=== PATIENT | female | born 1960 | race Caucasian/White ===

== ENCOUNTER 2021-12-27 13:53 | Outpatient (CLI) | payer BC, SELFPAY ==
--- NOTE | 2021-12-27 14:00 | CRLHL7_ITS ---
For Patients: As a result of the Cures Act, medical imaging exams and procedure reports are released immediately into your electronic medical record. You may view this report before your referring provider. If you have questions, please contact your health care provider. BILATERAL MAMMOGRAM WITH COMPUTER-AIDED DETECTION AND TOMOSYNTHESIS TECHNIQUE: CC and MLO views were obtained. These mammographic images have been obtained using full-field digital technique. These mammographic images were interpreted with the benefit of computer-aided detection. Breast Tomosynthesis was used in this interpretation. COMPARISON FILM: 09/08/2020, 12/02/2019, 11/16/2018. FINDINGS: The breasts are heterogeneously dense, which may obscure small masses IMPRESSION: There is no radiographic evidence for malignancy. ASSESSMENT: BI-RADS Category 2: Benign RECOMMENDATION: Routine screening mammogram in 1 year. A lay language report of this examination will be provided to the patient. Refugio Ansari M.D. Diagnostic Radiologist [email or web address] RICHARD/[email or web address] / be/Dictated by: Refugio Ansari MD @ 12/28/2021 2:15:00 PM (Electronically Signed)
== END 2021-12-27 13:54 | disposition home or self-care (01) ==
LOC: MAMMO 13:54
PROVIDERS: PCP Internal Medicine; Visit Provider Internal Medicine
DX: Z12.31 Encounter for screening mammogram for malignant neoplasm of breast (principal); R92.2 Inconclusive mammogram
CPT/HCPCS: 77063; 77067

== ENCOUNTER 2022-02-08 08:00 | Outpatient (CLI) | payer BC, SELFPAY ==
[2022-02-08 12:04] LABS: TSH With Reflex to FT4* 0.767 uIU/mL (0.270-4.200)
== END 2022-02-08 08:01 | disposition home or self-care (01) ==
LOC: NFLDREF 08:01
PROVIDERS: PCP Internal Medicine; Visit Provider Internal Medicine
DX: E03.9 Hypothyroidism, unspecified (principal)
CPT/HCPCS: 84443

== ENCOUNTER 2022-10-20 11:26 | Emergency (ER) | payer BC, SELFPAY ==
[2022-10-20 11:29] VITALS: BP 194/83; PULSE 89; RESP 20; TEMP 36.5; O2SAT 96; BMI 33.5
--- NOTE | 2022-10-20 12:12 | ED_ITS ---
HPI - General Adult General Chief complaint: Shortness of Breath/Dyspnea Stated complaint: Cough, trouble breathing Time Seen by Provider: 10/20/22 11:30 History of Present Illness HPI narrative: Patient is a 62 white female who attended her grandkids who been sick with viral type illnesses. She has no chronic respiratory problems but has had a cough and felt little short of breath with exertion over the last couple of days but mostly it is just cough most or shortness of breath happens when she coughs heavily. She has had good O2 sat here no fever. She has tested for COVID at home and it has been negative. She has no heart disease or lung disease. Related Data Previous Rx's Medication Instructions Recorded levothyroxine 175 mcg tablet 175 mcg PO .1XW #27 tabs 07/23/22 doxycycline hyclate 100 mg capsule 100 mg PO BID 7 days #14 caps 10/20/22 prednisone 20 mg tablet 20 mg PO BID #10 tabs 10/20/22 Allergies Allergy/AdvReac Type Severity Reaction Status Date / Time No Known Allergies Allergy Unverified 01/18/22 11:10 Review of Systems Status of ROS: Reports: 6 or more systems reviewed and unremarkable except as noted in History and below PFSH [facility] Medical History History of malignant neoplasm of breast ?Z85.3 - Personal history of malignant neoplasm of breast (ICD-10) Surgical History History of right salpingo-oophorectomy ?Z90.79 - Acquired absence of other genital organ(s) (ICD-10) ?Z90.721 - Acquired absence of ovaries, unilateral (ICD-10) History of hysteroscopy ?Z98.890 - Other specified postprocedural states (ICD-10) Social History Smoking Status: Unknown if ever smoked Exam Narrative: Exam Narrative: Objective: O2 sat is excellent vital signs show slightly elevated blood pressure HEENT is unremarkable Chest is clear other than some wheezes at the bases that clear with deep breathing Heart rhythm regular heart murmur Good peripheral perfusion noted Const: Vital Signs, click to edit/add: Vital Signs - 24 hr 10/20/22 11:29 10/20/22 12:30 Temperature 97.7 F Pulse Rate [Pulse Oximeter] 89 92 Respiratory Rate 20 Blood Pressure [Ri ght Upper Arm] 194/83 H 187/103 H Pulse Oximetry 96 95 Oxygen Delivery Me thod Room Air Room Air Course Vital Signs Vital signs: Initial Vital Signs Temperature 97.7 F 10/20/22 11:29 Temperature Source Temporal Artery Scan 10/20/22 11:29 Pulse Rate 89 10/20/22 11:29 Respiratory Rate 20 10/20/22 11:29 Blood Pressure 194/83 H 10/20/22 11:29 Blood Pressure Mean 120 H 10/20/22 11:29 Blood Pressure Position Sitting 10/20/22 11:29 Pulse Oximetry 96 10/20/22 11:29 Oxygen Delivery Method Room Air 10/20/22 11:29 Vital Signs Temperature 97.7 F 10/20/22 11:29 Pulse Rate 89 10/20/22 11:29 Respiratory Rate 20 10/20/22 11:29 Blood Pressure 194/83 H 10/20/22 11:29 Pulse Oximetry 96 10/20/22 11:29 Oxygen Delivery Method Room Air 10/20/22 11:29 Temperature 97.7 F 10/20/22 11:29 Pulse Rate 92 10/20/22 12:30 Respiratory Rate 20 10/20/22 11:29 Blood Pressure 187/103 H 10/20/22 12:30 Pulse Oximetry 95 10/20/22 12:30 Oxygen Delivery Method Room Air 10/20/22 12:30 Medical Decision Making MDM Narrative Medical decision making narrative: [age] female with a bronchitis type presentation with mild bronchospasm. At this point I think she has been exposed to viral illness, would check a COVID/RSV/influenza test. Will give her prednisone 50 mg now and then 20 b.i.d. x5 days, would also use doxycycline 100 mg b.i.d. x7 days rest fluids observation recheck with primary care as needed if not better in the next 2-3 days, return to ED sooner problems concerns worsening thanks Lab Data Labs: Lab Results 10/20/22 Range/Units 12:20 SARS-CoV-2 (PCR) Negative SARS-CoV-2 (Negative) Influenza Type A (PCR) Negative PCR FLU A (Negative) Influenza Type B (PCR) Negative PCR FLU B (Negative) RSV (PCR) Negative PCR RSV (Negative) Discharge Plan Discharge Clinical Impression: Acute bronchospasm, Bronchitis Patient Disposition: Home, Self-Care Condition: Stable Additional Instructions: Rest, fluids, light activity, Tylenol or Advil as needed, prednisone 20 mg b.i.d. starting tomorrow x3 days, doxycycline 100 mg b.i.d. x7 days. Return if problems or concerns or difficulty. Oxygen level looks good today. Activity Level: No Restrictions and Light activity Discharge Diet: Regular Prescriptions: New prednisone 20 mg tablet 20 mg PO BID Qty: 10 0RF doxycycline hyclate 100 mg capsule 100 mg PO BID 7 Days Qty: 14 0RF No Action levothyroxine 175 mcg tablet 175 mcg PO .1XW Qty: 27 1RF Rx Instructions: Take 150 mcg 4 times a week, 175mcg 3 day a week Follow Up/Referrals: Romi Quinn MD [Primary Care Provider] - Stand Alone Forms: [facility] Info Instructions
[2022-10-20] MEDS: predniSONE 10 MG TABLET 50 MG PO (12:21)
[2022-10-20] MEDS: DOXYCYCLINE HYCLATE 100 MG CAPSULE PO (12:21)
[2022-10-20 12:30] VITALS: BP 187/103; PULSE 92; O2SAT 95
[2022-10-20 13:20] LABS: PCR FLU A Negative PCR FLU A (Negative); PCR FLU B Negative PCR FLU B (Negative); PCR RSV Negative PCR RSV (Negative)
[2022-10-20 14:46] LABS: SARS PCR* Negative SARS-CoV-2 (Negative)
== END 2022-10-20 12:33 | disposition home or self-care (01) ==
PROVIDERS: Emergency Provider Family Medicine; PCP Internal Medicine
DX: J20.9 Acute bronchitis, unspecified (principal)
CPT/HCPCS: 87631; 99283; A9270; J7512

== ENCOUNTER 2022-12-31 07:53 | Outpatient (CLI) | payer BC, SELFPAY | END 2022-12-31 07:54 | disposition home or self-care (01) | LOC: NFLDREF 01-01 10:21 | PROVIDERS: PCP Internal Medicine; Referring Provider Internal Medicine; Visit Provider Internal Medicine | DX: E03.9 Hypothyroidism, unspecified (principal) | CPT/HCPCS: 84439; 84443 ==

== ENCOUNTER 2023-01-07 14:54 | Outpatient (CLI) | payer BC, SELFPAY ==
--- NOTE | 2023-01-07 15:00 | CRLHL7_ITS ---
For Patients: As a result of the Cures Act, medical imaging exams and procedure reports are released immediately into your electronic medical record. You may view this report before your referring provider. If you have questions, please contact your health care provider. BILATERAL SCREENING MAMMOGRAM WITH COMPUTER-AIDED DETECTION AND TOMOSYNTHESIS TECHNIQUE: CC and MLO views were obtained. These mammographic images have been obtained using full-field digital technique. These mammographic images were interpreted with the benefit of computer-aided detection. Breast Tomosynthesis was used in this interpretation. COMPARISON FILM: 12/27/21, 12/06/20, 12/02/19. FINDINGS: There are scattered areas of fibroglandular density IMPRESSION: There is no radiographic evidence for malignancy. ASSESSMENT: BI-RADS Category 2: Benign RECOMMENDATION: Routine screening mammogram in 1 year. A lay language report of this examination will be provided to the patient. Refugio Ansari M.D. Diagnostic Radiologist [email or web address] RICHARD/[email or web address] Transcribed: 2:54 p.mKirk grossman/Dictated by: Refugio Ansari MD @ 01/08/2023 11:59:00 AM (Electronically Signed)
== END 2023-01-07 14:55 | disposition home or self-care (01) ==
LOC: MAMMO 14:55
PROVIDERS: PCP Internal Medicine; Visit Provider Internal Medicine
DX: Z12.31 Encounter for screening mammogram for malignant neoplasm of breast (principal)
CPT/HCPCS: 77063; 77067

== ENCOUNTER 2023-04-11 10:01 | Outpatient (CLI) | payer BC, SELFPAY | END 2023-04-11 10:02 | disposition home or self-care (01) | LOC: NFLDREF 04-12 02:59 | PROVIDERS: PCP Internal Medicine; Referring Provider Internal Medicine; Visit Provider Internal Medicine | DX: E03.9 Hypothyroidism, unspecified (principal) | CPT/HCPCS: 84439; 84443 ==

== ENCOUNTER 2023-06-26 10:20 | Outpatient (CLI) | payer BC, SELFPAY | END 2023-06-26 10:21 | disposition home or self-care (01) | LOC: NFLDREF 06-27 07:27 | PROVIDERS: PCP Internal Medicine; Referring Provider Internal Medicine; Visit Provider Internal Medicine | DX: E03.9 Hypothyroidism, unspecified (principal) | CPT/HCPCS: 84443 ==

== ENCOUNTER 2024-02-24 08:16 | Outpatient (CLI) | payer BC, SELFPAY ==
--- NOTE | 2024-02-24 08:15 | CRLHL7_ITS ---
For Patients: As a result of the Century Cures Act, medical imaging exams and procedure reports are released immediately into your electronic medical record. You may view this report before your referring provider. If you have questions, please contact your health care provider. BILATERAL DIGITAL SCREENING MAMMOGRAM WITH COMPUTER-AIDED DETECTION AND TOMOSYNTHESIS CLINICAL HISTORY: Routine screening exam. COMPARISON: 01/07/2023, 12/27/2021, 12/06/2020. TECHNIQUE: Digital mammogram in CC and MLO projections including computer-aided detection (CAD). Tomosynthesis was used in this interpretation. BREAST COMPOSITION: There are scattered areas of fibroglandular density. FINDINGS: RIGHT Breast: Focal asymmetric density lateral breast 7 cm from the nipple. LEFT Breast: No suspicious findings. IMPRESSION: RIGHT breast asymmetry/mass. RECOMMENDATIONS: Additional mammographic views of the RIGHT breast including 3D spot compression CC/MLO. RIGHT breast ultrasound may also be required. [facility] will contact the patient for follow-up. BI-RADS Category 0: Incomplete: Need Additional Imaging Evaluation and/or Prior Mammograms for Comparison A lay language report of this examination will be provided to the patient. Dictated by Refugio Ansari MD @ 02/24/2024 11:15:43 AM /[email or web address]/[email or web address] SP/Dictated by: Refugio Ansari MD @ 02/24/2024 11:16:00 AM (Electronically Signed)
== END 2024-02-24 08:17 | disposition home or self-care (01) ==
PROVIDERS: PCP Internal Medicine; Visit Provider Internal Medicine
DX: Z12.31 Encounter for screening mammogram for malignant neoplasm of breast (principal); N63.10 Unspecified lump in the right breast, unspecified quadrant
CPT/HCPCS: 77063; 77067

== ENCOUNTER 2024-03-04 09:34 | Outpatient (CLI) | payer BC, SELFPAY ==
--- NOTE | 2024-03-04 09:45 | CRLHL7_ITS ---
For Patients: As a result of the Cures Act, medical imaging exams and procedure reports are released immediately into your electronic medical record. You may view this report before your referring provider. If you have questions, please contact your health care provider. RIGHT DIAGNOSTIC DIGITAL MAMMOGRAM WITH COMPUTER-AIDED DETECTION AND TOMOSYNTHESIS RIGHT BREAST ULTRASOUND CLINICAL HISTORY: RIGHT breast mass/asymmetry. COMPARISON: 02/24/24, 01/07/23, 12/27/21. TECHNIQUE: Digital RIGHT mammogram in two projections with computer-aided detection. Tomosynthesis was used in this interpretation. Real-time ultrasound imaging of RIGHT breast with imaging documentation. Scanning was performed by both the technologist and the radiologist. BREAST COMPOSITION: There are scattered areas of fibroglandular density. FINDINGS: 3D spot compression CC/MLO RIGHT breast mammogram images are submitted. Decreased conspicuity of the asymmetric density. No architectural distortion. Benign calcifications. Targeted RIGHT breast ultrasound performed at 9 o`clock, 7 cm from the nipple. Normal fibroglandular tissue is present. Incidental cluster of microcysts present measuring 1 cm in depth. IMPRESSION: No suspicious findings. No evidence of malignancy. RECOMMENDATION: Annual bilateral screening mammography. BI-RADS Category 2: Benign Results and recommendations discussed with the patient. A lay language report of this examination will be provided to the patient. Dictated by Refugio Ansari MD @ 03/04/2024 10:47:39 AM CRL:[email or web address] WANG/Dictated by: Refugio Ansari MD @ 03/04/2024 10:47:00 AM (Electronically Signed)
--- NOTE | 2024-03-04 10:15 | CRLHL7_ITS ---
For Patients: As a result of the Century Cures Act, medical imaging exams and procedure reports are released immediately into your electronic medical record. You may view this report before your referring provider. If you have questions, please contact your health care provider. PLEASE SEE RIGHT DIAGNOSTIC MAMMOGRAM OF SAME DAY FOR COMBINED REPORT. CRL:[email or web address] RD/Dictated by: Refugio Ansari MD @ 03/04/2024 10:47:00 AM (Electronically Signed)
== END 2024-03-04 09:35 | disposition home or self-care (01) ==
LOC: MAMMO 09:34
PROVIDERS: PCP Internal Medicine; Visit Provider Internal Medicine
DX: N63.10 Unspecified lump in the right breast, unspecified quadrant (principal); R92.8 Other abnormal and inconclusive findings on diagnostic imaging of breast
CPT/HCPCS: 76642; 77065; G0279

== ENCOUNTER 2024-08-06 08:15 | Outpatient (CLI) | payer MEDICARE, BC, SELFPAY | END 2024-08-06 08:16 | disposition home or self-care (01) | LOC: NFLDREF 08-10 06:36 | PROVIDERS: PCP Internal Medicine; Referring Provider Internal Medicine; Visit Provider Internal Medicine | DX: E03.9 Hypothyroidism, unspecified (principal); E78.5 Hyperlipidemia, unspecified; Z13.1 Encounter for screening for diabetes mellitus | CPT/HCPCS: 80061; 82947; 84439; 84443 ==

== ENCOUNTER 2025-04-29 09:32 | Outpatient (CLI) | payer MEDICARE, BC, SELFPAY ==
--- NOTE | 2025-04-29 09:45 | CRLHL7_ITS ---
For Patients: As a result of the Cures Act, medical imaging exams and procedure reports are released immediately into your electronic medical record. You may view this report before your referring provider. If you have questions, please contact your health care provider. COMPARISON: 03/04/2024, 02/24/2024, 01/07/2023 TECHNIQUE: Digital mammogram in CC and MLO projections including computer-aided detection (CAD) and tomosynthesis. BREAST COMPOSITION: The breasts are heterogeneously dense, which may obscure small masses. FINDINGS: No suspicious findings. ASSESSMENT: BI-RADS 2 Benign RECOMMENDATION: Annual screening mammogram. A lay language report of this examination will be provided to the patient. Dictated by: Refugio Ansari MD @ 04/29/2025 10:49:06 (Electronically Signed)
== END 2025-04-29 09:33 | disposition home or self-care (01) ==
LOC: MAMMO 09:33
PROVIDERS: PCP Internal Medicine; Visit Provider Internal Medicine
DX: Z12.31 Encounter for screening mammogram for malignant neoplasm of breast (principal); R92.333 Mammographic heterogeneous density, bilateral breasts
CPT/HCPCS: 77063; 77067